=== PATIENT | male | born 2000 | race African-American/Black ===

== ENCOUNTER 2019-03-02 22:00 | Emergency (ER) | payer MEDICAID ==
[~2019-03-02] VITALS: Ht 175.3 cm; Wt 95.5 kg
[2019-03-02 22:05] VITALS: Ht 175.3 cm; Wt 95.5 kg
[2019-03-02 22:25] LABS: BASOPHILS 0.2 % (0-2); EOSINOPHILS 2.7 % (0-7); HEMATOCRIT 39.2 % (42.0-54.0); HEMOGLOBIN 13.7 g/dL (13.5-17.5); IMMATURE GRANULOCYTES 0.2 % (0-5); LYMPHOCYTES 44.8 % (15-50); MCH 31.1 pg (26.0-34.0); MCHC 34.9 g/dL (31.0-37.0); MCV 88.9 fL (80.0-100.0); MEAN PLATELET VOLUME 11.8 fL (7.4-10.4); MONOCYTES 9.1 % (2-11); PLATELET COUNT 145 10x3/uL (130-400); RBC 4.41 10x6/uL (4.20-6.10); RDW 12.3 % (11.5-14.5); WBC 5.3 10x3/uL (4.8-10.8)
[2019-03-02 22:27] LABS: APPEARANCE CLEAR (CLEAR); BILIRUBIN NEGATIVE (NEGATIVE); COLOR YELLOW (YELLOW); GLUCOSE NEGATIVE (NEGATIVE); KETONE NEGATIVE (NEGATIVE); NITRITE NEGATIVE (NEGATIVE); PROTEIN NEGATIVE (NEGATIVE); SPECIFIC GRAVITY 1.015 (1.005-1.020); UROBILINOGEN NORMAL (NORMAL)
[2019-03-02 22:29] LABS: EPITHELIAL CELLS 0-5 /hpf (0-5); RED CELLS - URINE OCC /hpf (0-5); WHITE CELLS - URINE OCC /hpf (NEGATIVE)
[2019-03-02 22:30] LABS: BACTERIA FEW /hpf (NEGATIVE)
[2019-03-02 22:38] LABS: ALKALINE PHOSPHATASE 62 U/L (46-116); ALT (SGPT) 27 U/L (10-68); BILIRUBIN - TOTAL 0.35 mg/dL (0.2-1.3); CALC OSMOLALITY 280 mosm/kg (275-300); CALCIUM 8.8 mg/dL (8.5-10.1); CARBON DIOXIDE 31.2 mmol/L (21.0-32.0); CHLORIDE - SERUM 105 mmol/L (98-107); CREATININE - SERUM 1.4 mg/dL (0.6-1.3); GLUCOSE 81 mg/dL (74-106); PROTEIN - SERUM 7.6 g/dL (6.4-8.2); SODIUM 141 mmol/L (136-145); UREA NITROGEN 15 mg/dL (7-18); eGFR NON AFRICAN AMERICAN 69 mL/min (90-120)
[2019-03-02 22:40] LABS: AMYLASE - SERUM 42 U/L (25-115); LIPASE 90 U/L (73-393)
[2019-03-02 22:41] LABS: TROPONIN-I < 0.017 ng/mL (0.000-0.060)
[2019-03-02] MEDS ORDERED: ZOFRAN ODT4 MG/UDTAB PO (23:46)
[2019-03-02 23:55] VITALS: BP 132/75
== END 2019-03-02 23:55 | disposition home or self-care (01) ==
LOC: D.ER 22:00
PROVIDERS: Family Medicine
DX: A08.4 Viral intestinal infection, unspecified (principal)